=== PATIENT | female | born 1980 | race Asian ===

== ENCOUNTER 2019-05-01 16:09 | Emergency (ER) | payer OTHER ==
[~2019-05-01] VITALS: Ht 157.5 cm; Wt 62.6 kg
[2019-05-01 16:15] VITALS: Ht 157.5 cm; Wt 62.6 kg
[2019-05-01 17:23] LABS: CALCIUM 7.3 mg/dL (8.5-10.1); CARBON DIOXIDE 26.3 mmol/L (21-32); CHLORIDE SERUM 105 mmol/L (98-107); CREATININE SERUM 0.6 mg/dL (0.6-1.0); GFR1 > 60 mL/min; GLUCOSE SERUM 104 mg/dL (74-106); SODIUM SERUM 139 mmol/L (136-145)
[2019-05-01 17:28] LABS: ALKALINE PHOSPHATASE 43 U/L (46-116); ALT/SGPT 42 U/L (14-59); AST/SGOT 27 U/L (15-37); BILIRUBIN TOTAL 0.3 mg/dL (0.20-1.00); TOTAL PROTEIN, SERUM 6.9 g/dL (6.4-8.2)
[2019-05-01 17:31] LABS: ALBUMIN 3.3 g/dL (3.4-5.0)
[2019-05-01 17:34] LABS: BASOPHIL % 0.2 % (0-2); PLATELET COUNT 146 x10^3mcL (130-400); RED CELL DISTRIBUTION WIDTH 12.4 % (11.5-14.5)
[2019-05-01 18:27] LABS: microscopic required? YES; urine erythrocyte 3+ (NEGATIVE)
[2019-05-01 19:11] VITALS: BP 120/65
== END 2019-05-01 19:11 | disposition home or self-care (01) ==
LOC: ED 16:09
PROVIDERS: Emergency Medicine
DX: H70.001 Acute mastoiditis without complications, right ear (principal); J11.1 Influenza due to unidentified influenza virus with other respiratory manifestations
CPT/HCPCS: 87804; J2405; J3010; J7030; Q0092